=== PATIENT | male | born 1995 | race Caucasian/White ===

== ENCOUNTER 2024-07-27 00:19 | Inpatient (IN) | payer BC, MEDICAID, OTHER ==
[2024-07-27] MEDS: ZIPRASIDONE 20 MG VIAL IM STA ×3 (00:57→21:14)
[2024-07-27] MEDS: MIDAZOLAM 2 MG/2 ML VIAL IM ONE (00:57)
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
[2024-07-27] MEDS: LORazepam 1 MG TAB PO STA (12:44)
[2024-07-27 13:14] LABS: Amphetamine Screen,Urine Not Detected (NotDetected); Barbiturate Screen,Urine Not Detected (NotDetected); Benzodiazepines Screen,Urine Detected (NotDetected); Cocaine Screen,Urine Not Detected (NotDetected); Methadone Screen, Urine Not Detected (NotDetected); Opiate Screen,Urine Not Detected (NotDetected); Oxycodone Screen, Urine Not Detected (NotDetected); Phencyclidine Screen,Urine Not Detected (NotDetected); Tricyclic Antidepressant,Urine Not Detected (NotDetected); Urn Cannabinoid Scrn Not Detected (NotDetected)
[2024-07-28] MEDS: haloperidoL 5 MG TAB PO STA (00:35)
[2024-07-28] MEDS: ZIPRASIDONE 20 MG VIAL IM STA (10:55)
[2024-07-28] MEDS ORDERED: MAGNESIUM HYDROXIDE 2,400 MG/30 ML CUP PO PRN (14:11)
[2024-07-28] MEDS ORDERED: IBUPROFEN 600 MG TAB PO PRN (14:11)
[2024-07-28] MEDS ORDERED: MAG HYDROX/AL HYDROX/SIMETH 355 ML BOTTLE PO PRN (14:11)
[2024-07-28] MEDS ORDERED: ACETAMINOPHEN TAB 325 MG TAB PO PRN (14:11)
[2024-07-28] MEDS ORDERED: QUEtiapine 50 MG TAB PO PRN (14:23)
[2024-07-28] MEDS: HALOPERIDOL LACTATE 5 MG/ML 1 ML VIAL IM PRN (15:01)
[2024-07-28] MEDS: LORazepam 2 MG/ML INJ IM PRN (15:02)
--- NOTE | 2024-07-28 16:12 | P.MDCNMH ---
History of Present Illness H&P Date: 07/28/24 Patient is a 28-year-old male with no known past medical history who presented to the ER on 07/27/2024 he was brought here by police after his girlfriend called and stated that patient was acting paranoid and she felt concern for her safety. Also it was reported patient was making statements not fully making sense, paranoid ideations as he was president. In the ER patient required physical and chemical restraints due to uncooperation and aggressive behavior. His vitals were significant for normal temperature elevated BP 149/83, [id number] room air. Blood work from 07/25 available for review but unremarkable CBC and BMP, negative UA. His UDS from 07/25 was negative, 07/27 positive for benzos. Patient is admitted to mental health unit, sound physicians consulted for medical management On my evaluation, patient was walking in the hallway, he was reportedly trying to leave the unit, he agreed to be evaluated by me, you were accompanied by RN. Patient stated he does not know why he is in the hospital, remember that he was brought by police and mentioned that they are very nice people. He denies any previous medical history, surgical history family history history. Denies any shortness of breath, chest pain, abdominal pain, nausea, vomiting, lower extremity edema. Per RN, patient was agitated upon arrival to the unit, was not living in wheelchair and requested to be taken out by medical staff as well as security, the team was holding the patient and transporting from the wheelchair to the bed as he was not cooperating, and it is considered to be physical restraint, I was asked to complete [id number] evaluation. Pertinent positives and negatives as discussed in HPI, a complete review of systems was performed and all other systems are negative. Patient seen and examined at bedside. Vital signs reviewed General: nontoxic, no distress, appears at stated age Derm: warm, dry Head: atraumatic, normocephalic, symmetric Eyes: EOMI, no lid lag, anicteric sclera, pupils equal round reactive to light ENT: Nose and ears atraumatic Neck: No thyromegaly, supple Mouth: no lip lesion, mucus membranes moist Cardiovascular: S1S2 reg, no murmur, no edema Lungs: clear to auscultation bilateral, no rhonchi, no rales, no wheeze, no accessory muscle use Abdominal: soft, nontender to palpation, no guarding, no appreciable organomegaly Ext: no gross muscle atrophy, muscle strength muscle strength 5 out of 5 in all 4 extremities, no contractures Neuro: CN II-XII grossly intact Psych: Alert, oriented, paranoid Assessment/Plan: Acute psychosis - Management per primary psychiatry team -face to face evaluation completed Past Medical History Past Medical History: No Reported History History of Any Multi-Drug Resistant Organisms: None Reported Past Surgical History: No Surgical Hx Reported Past Psychological History: No Psychological Hx Reported Past Alcohol Use History: None Reported Past Drug Use History: None Reported Medications and Allergies Home Medications Medication Instructions Recorded Confirmed Type No Known Home Medications 12/11/14 07/27/24 History Allergies Allergy/AdvReac Type Severity Reaction Status Date / Time aloe Allergy Unknown Verified 07/27/24 11:32 Physical Exam Vitals: Vital Signs Pulse Resp BP Pulse Ox 07/28/24 07:17 101 H 18 165/86 100 Cranial Nerve Examination - Cranial Nerves Cranial Nerve II- Optic: Intact Cranial Nerve III- Oculomotor: Intact Cranial Nerve IV- Trochlear: Intact Cranial Nerve V- Trigeminal: Intact Cranial Nerve - Abducens: Intact Cranial Nerve VII- Facial: Intact Cranial Nerve VIII- Auditory: Intact Cranial Nerve IX- Glossopharyngeal: Intact Cranial Nerve X- Vagus: Intact Cranial Nerve XI- Accessory: Intact Cranial Nerve XII- Hypoglossal: Intact
--- NOTE | 2024-07-28 16:14 | P.MHFACE ---
Face to Face Restrain/Seclus - Evaluation Patient's Immediate Situation: Endangers self safety, Endangers others' safety Patient's Immediate Situation - Comment: Per RN, patient was cooperative after, however, still tries to leave the Unit, able to be redirected. Patient's Reaction to the Intervention: Appropriate Patient's Medical & Behavioral Condition: Awake, Alert, Follows directions, Paranoid, Manic Need to Continue or Terminate Restraint or Seclusion: Terminate
[2024-07-29] MEDS: LORazepam 1 MG TAB PO PRN (00:39)
[2024-07-29 08:32] LABS: Basophils # (A) 0.05 10*3/uL (0.00-0.10); Basophils % (A) 0.7 %; Eosinophils # (A) 0.02 10*3/uL (0.04-0.35); Eosinophils % (A) 0.3 %; HCT 47.9 % (39.6-50.0); HGB 16.3 g/dL (13.0-17.0); Lymphocytes # (A) 1.67 10*3/uL (0.90-5.00); Lymphocytes % (A) 24.6 %; MCH 30.5 pg (27.0-32.0); MCV 89.5 fL (80.0-97.0); Mean Platelet Volume 11.8 fL (9.5-12.2); Monocytes # (A) 0.53 10*3/uL (0.20-1.00); Monocytes % (A) 7.8 %; Neutrophils # (A) 4.52 10*3/uL (1.80-7.70); Neutrophils % (A) 66.5 %; Platelet Count 243 10*3/uL (140-440); RBC 5.35 10*6/uL (4.40-5.60)
[2024-07-29 08:55] LABS: ALT 30 U/L (4-49); AST 35 U/L (17-59); African American GFR (CKD) >90 (>60 ml/min/1.73 sqM); Albumin 4.7 g/dL (3.5-5.0); Alkaline Phosphatase 50 U/L (38-126); Anion Gap 10 mmol/L; Blood Urea Nitrogen 11 mg/dL (9-20); Calcium 10.1 mg/dL (8.4-10.2); Carbon Dioxide 26 mmol/L (22-30); Chloride 103 mmol/L (98-107); Glucose 90 mg/dL (74-99); Non-African American GFR(CKD) >90 (>60 ml/min/1.73 sqM); Potassium 4.5 mmol/L (3.5-5.1); Sodium 139 mmol/L (137-145); Total Bilirubin 0.9 mg/dL (0.2-1.3); Total Protein 7.3 g/dL (6.3-8.2)
[2024-07-29] MEDS: ARIPiprazole 10 MG TAB PO SCH (11:45)
[2024-07-29] MEDS: NICOTINE 14MG/24HR PATCH TRANSDERM SCH (11:48)
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
[2024-07-29] MEDS: haloperidoL 5 MG TAB PO PRN (12:13)
[2024-07-29 13:53] LABS: Appearance,Urine Clear (Clear); Bilirubin,Urine Negative (Negative); Blood,Urine Negative (Negative); Color,Urine Yellow; Glucose,Urine (UA) Negative (Negative); Ketones,Urine Negative (Negative); Leukocyte Esterase,Urine Negative (Negative); Nitrite,Urine Negative (Negative); PH, Urine 5.5 (5.0-8.0); Protein,Urine Negative (Negative); Specific Gravity,Urine 1.025 (1.001-1.035); Urobilinogen,Urine <2.0 mg/dL (<2.0)
[2024-07-29 16:14] LABS: Chol/HDL Ratio 2.25 Ratio; LDL Cholesterol,Calculated 60.7 mg/dL (0.0-131.0)
--- NOTE | 2024-07-30 13:46 | P.PN ---
Progress Note - Text Progress Note Date: 07/30/24 Interval History: Patient was seen wandering the hallways and was directable and agreeable to sp gina with sba underwriter in the [place] privately. He has been adherent with his Abilify, denying any adverse effects and feeling like the medication is working well thus far. He states he has been speaking to his girlfriend and that he can return home with her upon discharge. Patient continues to display disorganization in thoughts, randomly blurting out January 23 when discussing the legal process with the patient. The involuntary process was discussed thoroughly to the patient to which she initially states he plans on signing the deferral however then later said that he will go to court and then later on patient asked about being discharged today despite the lengthy discussion held earlier regarding the involuntary process. At this time patient denies any suicidal or homicidal ideations, intent or plan. Patient denies any auditory, visual hallucinations and denies any paranoia or delusions. Patient denies any side effects from the medications and has been compliant with meds. Mental Status Exam: General Appearance: Patient appears to be stated age is alert, directable, and cooperative. He is wearing a hospital gown Behavior: Patient is calmly standing without any agitated behavior. He is intermittently confused Speech: Patient's speech is fluent and nonpressured. Mood/Affect: Mood is improving mildly, affect is congruent and constricted. Suicidality/Homicidality: Patient denies having any suicidal or homicidal ideation intent or plan. Perceptions: Patient denies any visual hallucinations and denies any auditory hallucinations Though content/process: There is evidence of disorganization in thoughts, bizarre behaviors, paranoia lessening Memory and concentration: AOX3, grossly intact for the purposes of this session Judgment and insight: Improving mildly Assessment Psychosis, unspecified Rule out bipolar 1 disorder versus schizoaffective disorder bipolar type Plan: -Patient continues to meet criteria for inpatient psychiatric admission for symptom stabilization and safety. Patient has not signed adult voluntary form and medication consent and was placed in patient's chart. -Medications: Continue Abilify 10 mg daily for psychosis -When necessary Ativan and Haldol for agitation/aggression. -Labs: Reviewed, TSH/A1c/lipid panel all WNL -SW on board for discharge planning. Encouraged the patient to participate in milieu. Currently awaiting deferral with health care attorney and court date.
[2024-07-31] MEDS: ARIPiprazole 5 MG TAB PO SCH (09:08)
--- NOTE | 2024-07-31 10:52 | P.PN ---
Progress Note - Text Progress Note Date: 07/31/24 Interval History: Patient was seen wandering the hallways and was directable and agreeable to sp gina with property underwriter in the office. Patient is pleasantly psychotic, still exhibiting disorganization in thoughts, asked if he is able to have his wedding ceremony here in the hospital. 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 He likes having the Abilify, reporting no adverse effects. He continues to emphasize how he does not use any substances including alcohol. He reports sleeping okay. At this time patient denies any suicidal or homicidal ideations, intent or plan. Patient denies any auditory, visual hallucinations. Patient denies any side effects from the medications and has been compliant with meds. Mental Status Exam: General Appearance: Patient appears to be stated age is alert, pleasant, directable, and cooperative. Behavior: Patient is calmly seated without any agitated behavior. Speech: Patient's speech is fluent and nonpressured. Mood/Affect: Mood is improving mildly, affect is congruent and constricted. Suicidality/Homicidality: Patient denies having any suicidal or homicidal ideation intent or plan. Perceptions: Patient denies any visual hallucinations and denies any auditory hallucinations Though content/process: There is evidence of disorganization in thoughts, delusional thoughts exhibited Memory and concentration: AOX3, grossly intact for the purposes of this session Judgment and insight: Improving mildly Assessment Psychosis, unspecified Rule out bipolar 1 disorder versus schizoaffective disorder bipolar type Plan: -Patient continues to meet criteria for inpatient psychiatric admission for symptom stabilization and safety. Patient has not signed adult voluntary form and medication consent and was placed in patient's chart. -Medications: Increase Abilify to 15 mg daily for psychosis -When necessary Ativan and Haldol for agitation/aggression. -Labs: Reviewed, TSH/A1c/lipid panel all WNL -SW on board for discharge planning. Encouraged the patient to participate in milieu. Currently awaiting deferral with commercial real estate attorney and court date.
--- NOTE | 2024-08-01 12:52 | P.PN ---
Progress Note - Text Progress Note Date: 08/01/24 Interval History: Patient was seen wandering the hallways and was directable and agreeable to sp gina with senior writer in the office. Patient continues to be disorganized in his thoughts with bizarre behaviors. He expressed delusional thoughts about being tomorrow and his desire to speak to his girlfriend's father before the wedding ceremony. Patient continues to be intrusive at times however is redirectable. He was informed that the deicer finisher will be by later today so that he can sign the deferral. 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 He denied any euphoria, elevated mood. At this time patient denies any suicidal or homicidal ideations, intent or plan. Patient denies any auditory, visual hallucinations and denies any paranoia. Patient denies any side effects from the medications and has been compliant with meds. Mental Status Exam: General Appearance: Patient appears to be stated age is alert, directable, and cooperative. He has fair grooming and hygiene Behavior: Patient is calmly seated without any agitated behavior. Speech: Patient's speech is fluent and nonpressured. Mood/Affect: Mood is improving mildly, affect is congruent and constricted. Suicidality/Homicidality: Patient denies having any suicidal or homicidal ideation intent or plan. Perceptions: Patient denies any visual hallucinations and denies any auditory hallucinations Though content/process: There is evidence of disorganization, delusional thoughts expressed Memory and concentration: AOX3, grossly intact for the purposes of this session Judgment and insight: Improving mildly Assessment Psychosis, unspecified Rule out bipolar 1 disorder versus schizoaffective disorder bipolar type Plan: -Patient continues to meet criteria for inpatient psychiatric admission for symptom stabilization and safety. Patient has not signed adult voluntary form and medication consent and was placed in patient's chart. -Medications: Increase Abilify to 20 mg daily for psychosis -When necessary Ativan and Haldol for agitation/aggression. -Labs: Reviewed and everything has been negative thus far including UA and CT head, further lab workup ordered including ZACHARY, syphilis and B12 -SW on board for discharge planning. Encouraged the patient to participate in milieu. Currently awaiting deferral with deicer finisher and court date. Batch Mixer to come later today for patient to sign deferral
[2024-08-02] MEDS: ARIPiprazole 10 MG TAB PO SCH (08:22)
--- NOTE | 2024-08-02 15:55 | P.PN ---
Subjective Progress Note Date: 08/02/24 Principal diagnosis: Psychosis NOS Patient was seen wandering the hallways and was directable and agreeable to speak with securities underwriter in the office. He was very positive and bubbly came up when you know if I want to see him now. Big smile on his face. He seems to have no recollection of what he was saying and doing as recently as yesterday that other people would see is unusual. He said that he and his girlfriend had gone to visit his folks who do not like her but liked some of his former girlfriend's. So they put boxes in their room with paraphernalia left over from the use of the relationship. This is bothersome to him so he objected and they got into a disagreement and he wound up here.. Patient continues to be intrusive at times however is redirectable. He denied any euphoria, elevated mood. However he had a big smile Talking about problem. At this time patient denies any suicidal or homicidal ideations, intent or plan. Patient denies any auditory, visual hallucinations and denies any paranoia. Patient denies any side effects from the medications and has been compliant with meds. Mental Status Exam: General Appearance: Patient appears to be stated age is alert, directable, and cooperative. He has fair grooming and hygiene Behavior: Patient is calmly seated without any agitated behavior. Speech: Patient's speech is fluent and nonpressured. Mood/Affect: Mood is improving mildly, affect is congruent and constricted. Suicidality/Homicidality: Patient denies having any suicidal or homicidal ideation intent or plan. Perceptions: Patient denies any visual hallucinations and denies any auditory hallucinations Though content/process: There is evidence of disorganization, delusional thoughts expressed Memory and concentration: AOX3, grossly intact for the purposes of this session Judgment and insight: Improving mildly Assessment it appears that the psychosis is beginning to clear he does not seem to have any objection to taking the Abilify. Psychosis, unspecified Rule out bipolar 1 disorder versus schizoaffective disorder bipolar type he certainly has enormous energy of a person with bipolar Plan: -Patient continues to meet criteria for inpatient psychiatric admission for symptom stabilization and safety. Patient has not signed adult voluntary form and medication consent and was placed in patient's chart. -Medications: Increase Abilify to 25 mg daily for psychosis -When necessary Ativan and Haldol for agitation/aggression. -Labs: Reviewed and everything has been negative thus far including UA and CT head, further lab workup ordered including ZACHARY, syphilis and B12 -SW on board for discharge planning. Encouraged the patient to participate in milieu. Currently awaiting deferral with entry level project coordinator and court date. Western Philosophy Professor to come later today for patient to sign deferral Objective - Vital Signs Vital signs: Vital Signs Temp 98.6 F 08/02/24 08:20 Pulse 88 08/02/24 08:20 Resp 20 08/02/24 08:20 BP 113/61 08/02/24 08:20 Pulse Ox 97 08/02/24 08:20 FiO2 - Labs CBC & Chem 7: 07/29/24 07:58 07/29/24 07:58
--- NOTE | 2024-08-03 06:47 | P.PN ---
Subjective Progress Note Date: 08/03/24 Principal diagnosis: Psychosis NOS Appears to have Bipolar I shaye Patient was seen wandering the hallways and was directable and asked to speak with short story writer in the office, "I want to be the first 1 on your list today".. He continues very overly positive and bubbly. Big smile on his face. At this time patient denies any suicidal or homicidal ideations, intent or plan. Patient denies any auditory, visual hallucinations and denies any paranoia. Patient denies any side effects from the medications and has been compliant with meds. 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 He made a comment about how he would be 6 months before he could get to the boat so I asked him why and he said, "well I am going to be in here that long." Mental Status Exam: No aggression not even invadingexcept every time I walk out the door he says, "radha Vanessa I would like you" General Appearance: Patient appears to be stated age is alert, directable, and cooperative. He has fair grooming and hygiene Behavior: Patient is calmly seated without any agitated behavior. Speech: Patient's speech is fluent and nonpressured. Mood/Affect: Mood is improving mildly, affect is congruent and constricted. Suicidality/Homicidality: Patient denies having any suicidal or homicidal ideation intent or plan. Perceptions: Patient denies any visual hallucinations and denies any auditory hallucinations Though content/process: There is evidence of disorganization, delusional thoughts expressed Memory and concentration: AOX3, grossly intact for the purposes of this session he does give a lot of excess irrelevant information having difficulty deciding what information is relevant to the person and place and situation Judgment and insight: Improving mildly Assessment it appears that the psychosis is beginning to clear he does not seem to have any objection to taking the Abilify. Psychosis, unspecified Rule out bipolar 1 disorder versus schizoaffective disorder bipolar type he certainly has enormous energy some flight of ideas and a little bit of pressure of a person with bipolar Plan: -Patient continues to meet criteria for inpatient psychiatric admission for symptom stabilization and safety. Patient has not signed adult voluntary form and medication consent and was placed in patient's chart. -Medications: Increase Abilify to 25 mg daily for psychosis -When necessary Ativan and Haldol for agitation/aggression. -Labs: Reviewed and everything has been negative thus far including UA and CT head, further lab workup ordered including ZACHARY, syphilis and B12 -SW on board for discharge planning. Encouraged the patient to participate in milieu. Currently awaiting deferral with employee benefits attorney and court date. Province Archivist to come later today for patient to sign deferral Objective - Vital Signs Vital signs: Vital Signs Temp 98.6 F 08/02/24 08:20 Pulse 88 08/02/24 08:20 Resp 20 08/02/24 08:20 BP 113/61 08/02/24 08:20 Pulse Ox 97 08/02/24 08:20 FiO2 - Labs CBC & Chem 7: 07/29/24 07:58 07/29/24 07:58
--- NOTE | 2024-08-04 12:10 | P.PN ---
Progress Note - Text Progress Note Date: 08/04/24 Interval History: Patient was seen wandering the hallways and was directable and agreeable to sp eak with writer technical publications in the office. Patient continues to exhibit disorganization in his thoughts and behaviors, confusion as evidenced by him repeatedly asking to speak to writer technical publications despite speaking to writer technical publications several times with no clear reasoning behind this. He displays delusional thoughts, stating that he is the president of the hospital and that writer technical publications does not believe him. He no longer feels as tho ugh he is getting soon. When asked about paranoia, patient chuckles and questions if others are after him sexually, stating that he circled this on his goalsetting sheet today. At this time patient denies any suicidal or homicidal ideations, intent or plan. Patient denies any auditory, visual hallucinations. Patient denies any side effects from the medications and has been compliant with meds. 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 She feels as though patient's parents did not have his best interest as his sister is currently suffering from bipolar disorder however they prefer a more holistic approach. She states patient today contacted her regarding having her father text him, making odd statements such as having wanted to tell him that he has to have a bowel movement. She is hopeful that patient can return home with her once stable. Mental Status Exam: General Appearance: Patient appears to be stated age is alert, directable, and cooperative. Behavior: Patient is calmly seated without any agitated behavior. Requires frequent redirection Speech: Patient's speech is fluent and nonpressured. Mood/Affect: Mood is improving mildly, affect is congruent and expansive. Suicidality/Homicidality: Patient denies having any suicidal or homicidal ideation intent or plan. Perceptions: Patient denies any visual hallucinations and denies any auditory hallucinations Though content/process: There is evidence of disorganization, bizarre behaviors, delusions of being the vice president of manufacturing Memory and concentration: AOX3, grossly intact for the purposes of this session Judgment and insight: Improving mildly Assessment Psychosis, unspecified Rule out bipolar 1 disorder versus schizoaffective disorder, bipolar type Plan: -Patient continues to meet criteria for inpatient psychiatric admission for symptom stabilization and safety. Patient has not signed adult voluntary form and medication consent and was placed in patient's chart. -Medications: Discontinue Abilify and start Invega 6 mg at bedtime for psychosis -When necessary Ativan and Haldol for agitation/aggression. -Labs: ZACHARY, syphilis and vitamin B12 all WNL -SW on board for discharge planning. Encouraged the patient to participate in milieu. Patient deferred on Sunday.
[2024-08-04] MEDS: PALIPERIDONE 6 MG TAB.ER.24 PO SCH (20:40)
--- NOTE | 2024-08-05 12:11 | P.PN ---
Progress Note - Text Progress Note Date: 08/05/24 Interval History: Patient was seen wandering the hallways and was directable and agreeable to sp faheemk with headline writer in the office. Patient was intrusive, requiring frequent redirection however did appear more calm than yesterday after receiving as needed medications. He was apologetic for his behaviors yesterday, still exhibiting flight of ideas with delusional thoughts, inquiring if headline writer can officiate his wedding and then later asking headline writer how the new medication is working despite patient himself taking the medication. 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 He reports sleeping and eating well. He inquires about discharge stating that he has to watch his girlfriends daughter over the weekend. At this time patient denies any suicidal or homicidal ideations, intent or plan. Patient denies any auditory, visual hallucinations and denies any paranoia. Patient denies any side effects from the medications and has been compliant with meds. Mental Status Exam: General Appearance: Patient appears to be stated age is alert, directable, and cooperative. He has fair grooming and hygiene Behavior: Patient is calmly seated without any agitated behavior. Requires frequent redirection Speech: Patient's speech is fluent and talkative Mood/Affect: Mood is improving mildly, affect is congruent and expansive. Suicidality/Homicidality: Patient denies having any suicidal or homicidal ideation intent or plan. Perceptions: Patient denies any visual hallucinations and denies any auditory hallucinations Though content/process: There is evidence of delusional thoughts, flight of ideas Memory and concentration: AOX3, grossly intact for the purposes of this session Judgment and insight: Improving mildly Assessment Psychosis, unspecified Rule out bipolar 1 disorder versus schizoaffective disorder, bipolar type Plan: -Patient continues to meet criteria for inpatient psychiatric admission for symptom stabilization and safety. Patient has not signed adult voluntary form and medication consent and was placed in patient's chart. -Medications: Increase Invega to 9 mg at bedtime for psychosis -When necessary Ativan and Haldol for agitation/aggression. -Labs: Reviewed, all WNL -SW on board for discharge planning. Encouraged the patient to participate in milieu. Patient deferred this past Sunday.
[2024-08-05] MEDS: PALIPERIDONE 3 MG TAB.ER.24 PO SCH (20:25)
[2024-08-05] MEDS: DIVALPROEX ER 250 MG TAB.ER.24H PO SCH (20:25)
--- NOTE | 2024-08-06 12:17 | P.PN ---
Progress Note - Text Progress Note Date: 08/06/24 Interval History: Patient was seen wandering the hallways and was directable and agreeable to sp gina with financial writer in the office. Patient did require as needed medications however this was due to and intrusive peer going into his room and putting on his belongings. Patient was able to control himself, handling the situation well. Patient did admit that he wanted to hurt this. However he was able to refrain from this. Patient still exhibits disorganization in thoughts however they are improving and that he initially spoke of his girlfriend as his fiance however later on he did refer to her as his girlfriend, stating that he has not yet proposed to her even though he wants to do this. Patient states wanting to speak to his girlfriend's father to apologize for not bringing him a beer. He inquires about discharge, states he will take his medications and is interested in pursuing therapy upon discharge. At this time patient denies any suicidal or homicidal ideations, intent or plan. Patient denies any auditory, visual hallucinations and denies any paranoia. Patient denies any side effects from the medications and has been compliant with meds. Mental Status Exam: General Appearance: Patient appears to be stated age is alert, directable, and cooperative. Behavior: Patient is calmly seated without any agitated behavior. He is pleasant, polite Speech: Patient's speech is fluent and nonpressured. Mood/Affect: Mood is improving mildly, affect is congruent and bright. Suicidality/Homicidality: Patient denies having any suicidal or homicidal ideation intent or plan. Perceptions: Patient denies any visual hallucinations and denies any auditory hallucinations Though content/process: There is evidence of delusions however lessening, some disorganized thoughts Memory and concentration: AOX3, grossly intact for the purposes of this session Judgment and insight: Improving mildly Assessment Psychosis, unspecified Rule out bipolar 1 disorder versus schizoaffective disorder, bipolar type Plan: -Patient continues to meet criteria for inpatient psychiatric admission for symptom stabilization and safety. Patient has not signed adult voluntary form and medication consent and was placed in patient's chart. -Medications: Increase Invega to 12 mg at bedtime for psychosis, continue Depakote ER 750 mg at bedtime for mood stabilization -When necessary Ativan and Haldol for agitation/aggression. -Labs: Reviewed all WNL, will order a Depakote level in the upcoming days -SW on board for discharge planning. Encouraged the patient to participate in milieu. Patient is currently on a deferral status. Anticipate discharge in the upcoming days pending stabilization in psychosis
[2024-08-06] MEDS: PALIPERIDONE 3 MG TAB.ER.24 PO SCH (20:02)
--- NOTE | 2024-08-07 10:40 | P.PN ---
Progress Note - Text Progress Note Date: 08/07/24 Interval History: Patient was seen wandering the hallways and was directable and agreeable to sp eak with medical writer in the office. Patient notably is less disorganized, less bizarre behaviors such as knocking on medical writer's door constantly throughout the day. He has been adherent with the psychotropic medications, stating that he likes the current cocktail of medications. He is sleeping well. He saw his girlfriend during visitations yesterday which she said was nice for him. He no longer feels as though they are getting soon however he did display some disorganized thoughts stating that he saw the date January 21 and that triggered him to think that they might get on that day. He was goal oriented, talked about his desire to spend father stay with his father fishing. At this time patient denies any suicidal or homicidal ideations, intent or plan. Patient denies any auditory, visual hallucinations and denies any paranoia. Patient denies any side effects from the medications and has been compliant with meds. Mental Status Exam: General Appearance: Patient appears to be stated age is alert, directable, and cooperative. He is polite Behavior: Patient is calmly seated without any agitated behavior. Some restlessness noted Speech: Patient's speech is fluent and nonpressured. Mood/Affect: Mood is improving mildly, affect is congruent and bright. Suicidality/Homicidality: Patient denies having any suicidal or homicidal ideation intent or plan. Perceptions: Patient denies any visual hallucinations and denies any auditory hallucinations Though content/process: There is evidence of disorganization however lessening, delusional thoughts are also lessening Memory and concentration: AOX3, grossly intact for the purposes of this session Judgment and insight: Improving mildly Assessment Psychosis, unspecified Rule out bipolar 1 disorder versus schizoaffective disorder bipolar type Plan: -Patient continues to meet criteria for inpatient psychiatric admission for symptom stabilization and safety. Patient has not signed adult voluntary form and medication consent and was placed in patient's chart. -Medications: Continue Invega 12 mg at bedtime for psychosis, Depakote ER 750 mg at bedtime for mood stabilization -When necessary Ativan and Haldol for agitation/aggression. -Labs: Reviewed, Depakote level ordered tomorrow -SW on board for discharge planning. Encouraged the patient to participate in milieu. Patient is currently on a deferral status. Anticipate discharge home with girlfriend tomorrow
[2024-08-07 11:40] VITALS: BMI 34.1
[2024-08-07 22:53] VITALS: BP 131/82; PULSE 122; RESP 18; TEMP 98
--- NOTE | 2024-08-08 10:48 | P.DS ---
Providers Date of admission: 07/28/24 13:58 Expected date of discharge: 08/08/24 Attending physician: Samantha Bentley MD Consults: 07/28/24 14:11 Consult Physician Routine Consulting Provider: Dennys Matthews Consult Reason/Comments: H&P and medical Do you want consulting provider notified?: Yes Primary care physician: Stated None - Discharge Diagnosis(es) (1) Acute psychosis Current Visit: Yes Status: Acute Priority: High Hospital Course: Admission HPI: Admission note was completed by residential mortgage underwriter "Patient presented to the hospital with psychosis. Patient's mother filled out the petition which states, "hyperfocus on things that do not fully make sense. Similar to relevance, but not actually happening, i.e. going to purchase a business, going to get to his girlfriend. He has stated a couple of times he thinks he is the president." EPS notes states, "Patient presented to ER with PD related to increased aggression and delusional thoughts. Patient assessed in ER13 with his girlfriend (Josefa) and mother (Laurel) at bedside. Patient was petitioned by Laurel related to increased paranoia and delusional thoughts, and clinical certificate already complete by Dr. Bey related to acute psychosis including paranoia and grandiosity. Patient stated presenting problem "I've walked around this hospital, I've seen what I needed to see and talked to who I need to talk to and I am ready to go home". Patient redirectable throughout interview but required frequent redirection. Patient presents with tangential speech, loud tone of voice, intense stare, and flight of ideas. Patient denies suicidal and homicidal ideations. Patient denies hallucinations and paranoia. Patient appears to make delusional statements "I am the CARE PROFESSIONAL [employer] so you can't tell me anything". Patient did not demonstrate any aggression during assessment. Patient was easily redirectable. Patient denies alcohol or drug use. Leadership Program Internship assessed patient on Sunday evening 07/24/2024 related to being at a wedding shirtless. At time of interview, patient had returned to baseline per mother. Patient at that time was calm and cooperative. It was thought to be chemicals in his car that caused previous episode. Josefa reported that patient over the last day has been up and down in moods, increased paranoia, and making delusional statements. Patient at this time is observed to be much different to residential mortgage underwriter than presentation on Sunday. Patient has poor insight into condition, poor recollection of events, and does not understand why he is in ER. Patient educated multiple times but requires frequent reminders. Patient and family educated on transfer r/t no bed availability at this time. Verbalizes understanding." Patient seen and evaluated on the unit and was agreeable with speaking to residential mortgage underwriter in room. He displays disorganization in his thoughts, poor insight. 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 He denied any past psychiatric history. He displayed paranoia and admitted to having paranoia previously however did admit to trusting residential mortgage underwriter. Patient displayed mood lability, as evidenced by him going from laughing hysterically to becoming tearful. 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 He states recently killing a mouse at his home with a piece of wood when asked about homicidal ideations. Patient denies any suicidal or homicidal ideations intent or plan. At this time patient denies any auditory or visual hallucinations. Patient denies any flight of ideas racing thoughts and increased in goal directed behavior. Patient admits to using no substances. Patient states he does not want to take medications, requesting to see a brain surgeon instead." Hospital course: Upon admission to the unit patient was admitted involuntarily on a petition and certificate and a second certificate was completed and faxed to the courts. Patient ended up signing a deferral with the ip attorney and agreeing to treatment.. Patient got along well with other patients on the unit and followed unit protocol. Patient was compliant with the medications and denied any side effects throughout hospital course. Patient was started on Abilify and this was increased to 25 mg however patient continued to exhibit psychosis and this was discontinued and he was started instead on Invega and this was increased to 12 mg at bedtime for psychosis with better effects. For mood stabilization, patient was started on Depakote ER 750 mg at bedtime, Depakote level returned at 41.9. Patient spoke of his stressors and engaged in therapy both group and individual. Patient was also seen by medical team for history and physical exam. Throughout the course of the hospitalization patient gradually improved with regards to mood, anxiety, sleep and returned back to their baseline level of functioning. On the day of discharge patient denied any suicidal or homicidal ideations intent or plan denied any auditory or visual hallucinations. The patient denied any access to guns or weapons. Patient denied any paranoia however did exhibit some delusional thoughts however less in severity than previous encounters. Patient does not have a significant history of substance abuse and was counseled on abstaining from all substances including alcohol and marijuana. Patient was also counseled on the medications and need for regular compliance and was encouraged to follow-up with their outpatient appointment for mental health and also for primary care. Prior to discharge a family meeting will be arranged by social contact worker to answer any questions and ensure safety upon discharge including making sure that guns/weapons are either removed from the home or locked away. Patient to be discharged home with girlfriend and will follow-up with [facility]. Mental status exam: General Appearance: Patient appears to be stated age is alert, pleasant, polite and cooperative. Patient is in no acute distress and has fair hygiene and grooming Behavior: Patient is calmly seated without any agitated behavior. Speech: Patient's speech is fluent and nonpressured. Mood/Affect: Patient reports their mood is "good", affect is congruent and euthymic. Suicidality/Homicidality: Patient denies having any suicidal or homicidal ideation intent or plan. Perceptions: Patient denies any auditory or visual hallucinations. Though content/process: There is evidence of mild delusional thought content and thought process is linear and goal-directed. More future oriented Memory and concentration: AOX3, grossly intact for the purposes of this session. Can spell "WORLD" backwards correctly. Judgment and insight: Fair Impression: Unspecified psychosis Rule out bipolar 1 disorder versus schizoaffective disorder bipolar type Plan: -Continue with discharge today as patient has improved and stabilized psychiatrically and is not currently an imminent threat to themself and/or others. -Continue medications: Invega 12 mg at bedtime, Depakote ER 750 mg at bedtime -Patient was counseled on the need for medication compliance and appropriate follow-up at mental health and also primary care for medical issues. Patient verbalized understanding and agreed. -Social work to help coordinate patients discharge today arrange for and conduct family meeting to ensure safety upon discharge and answer any questions/concerns. also to ensure safe home environment that guns/weapons are either removed from the home or locked away. Social work also to arrange for patients follow up appointments with [facility] for psychiatric care along with follow up with primary care provider. -Patient counseled on abstaining from recreational drugs and marijuana and alcohol. Was informed/educated on the adverse effects on their physical and mental health. Patient verbally agreed and understood. -Patient was instructed to return to the hospital or seek immediate medical care if their psychiatric or medical symptoms do worsen or reoccur. Abnormal Labs 07/27/24 07/29/24 12:36 07:58 Eosinophils # 0.02 L U Benzodiazepines Scrn Detected H Allergies Allergy/AdvReac Type Severity Reaction Status Date / Time aloe Allergy Unknown Verified 07/27/24 11:32 Vital Signs Temp 98.0 F 08/07/24 21:00 Pulse 122 H 08/07/24 21:00 Resp 18 08/07/24 21:00 BP 131/82 08/07/24 21:00 Pulse Ox 97 08/07/24 21:00 FiO2 Intake & Output 08/07/24 08/08/24 08/08/24 18:59 06:59 18:59 Weight 111.1 kg Patient Condition at Discharge: Stable Plan - Discharge Summary Discharge Rx Participant: No New Discharge Prescriptions: New Paliperidone [Invega] 12 mg PO HS 30 Days #120 tab Divalproex ER [Depakote ER] 750 mg PO HS 30 Days #90 tab Discharge Medication List Divalproex ER [Depakote ER] 750 mg PO HS 30 Days #90 tab 08/08/24 [Rx] Paliperidone [Invega] 12 mg PO HS 30 Days #120 tab 08/08/24 [Rx] Follow up Appointment(s)/[facility]erral(s): [facility]Other[facility] - [address] [facility] [NON-STAFF] - 08/12/24 9:00 am (Intake appointment with [facility]. ) Patient Instructions/Handouts: Psychotic Disorder (DC) Activity/Diet/Wound Care/Special Instructions: Avoid the use of street drugs and alcohol. Take all medications as prescribed. When you are in need of refills on your medications, please contact your medical provider and/or outpatient psychiatrist/provider to have this done. Please go to your scheduled outpatient appointment for aftercare treatment. If symptoms return or become worse, call the crisis line at and/or go to the nearest emergency room for evaluation. National Suicide Hotline [facility] [facility] confidentiality statement: "The information contained in this communication, including attachments, is confidential, may be privileged, and is intended only for the use of the named recipient(s). Unauthorized use, disclosure, forwarding or copying is strictly prohibited and may be unlawful. If you have received this communication in error, please notify me IMMEDIATELY at the phone number or pager listed above. Discharge/Stand Alone Forms: Area PCPs Discharge Disposition: HOME SELF-CARE
== END 2024-08-08 07:00 | disposition home or self-care (01) | DRG 750 ==
LOC: EC 00:19 → 3MHU 07-28 13:58
PROVIDERS: ADMIT Psychiatry & Neurology Psychiatry; ATTEND Psychiatry & Neurology Psychiatry
DX: F23 Brief psychotic disorder (principal); R45.86 Emotional lability; F41.9 Anxiety disorder, unspecified; R03.0 Elevated blood-pressure reading, without diagnosis of hypertension; Z78.1 Physical restraint status; Z79.899 Other long term (current) drug therapy; Z28.21 Immunization not carried out because of patient refusal; Z71.89 Other specified counseling
CPT/HCPCS: 80053; 80061; 80164; 80306; 81003; 82075; 82607; 83036; 84443; 85025; 86038; 86780; 87635; 96372; 99285

== ENCOUNTER 2024-08-12 11:20 | Emergency (ER) | payer BC, OTHER ==
--- NOTE | 2024-08-12 11:50 | ED ---
General Adult HPI - General Chief complaint: Recheck/Abnormal Lab/Rx Stated complaint: Mental health eval Time Seen by Provider: 08/12/24 11:50 Source: patient, family (girlfriend), RN notes reviewed, old records reviewed (Discharge summary reviewed from 08/08/24) Mode of arrival: ambulatory Limitations: no limitations - History of Present Illness Initial comments: 28-year-old male presented to ER for evaluation of dysphagia. Girlfriend prov iding majority of HPI. She states patient was discharged from [facility]. on 08-08-2024. Patient was discharged on Invega 12 mg at bedtime and Depakote 750 mg at bedtime. Girlfriend reports over the weekend patient has had severe drooling and appears "out of it". She also reports patient is having difficulty with eating. She states he takes a minute to "think" about swallowing. Patient is tolerating liquids and applesauce without difficulty. She is concerned Invega dose may be too high. Patient was seen by [facility] today and instructed come to the emergency department for further evaluation of dysphagia and drooling. Patient is scheduled to follow-up with prescriber tomorrow. Girlfriend denies any slurred speech, facial droop, unilateral weakness. Patient denies any headache, cough, congestion, chest pain, difficulty breathing, dizziness or lightheadedness. No other complaints Patient denies SI or HI. Patient denies any drug or alcohol use including marijuana. - Related Data Previous Rx's Medication Instructions Recorded Divalproex ER [Depakote ER] 750 mg PO HS 30 Days #90 tab 08/08/24 Paliperidone [Invega] 12 mg PO HS 30 Days #120 tab 08/08/24 Allergies Allergy/AdvReac Type Severity Reaction Status Date / Time aloe Allergy Unknown Verified 08/12/24 12:54 Review of Systems ROS Statement: Those systems with pertinent positive or pertinent negative responses have been documented in the HPI. ROS Other: All systems not noted in ROS Statement are negative. Past Medical History Past Medical History: No Reported History History of Any Multi-Drug Resistant Organisms: None Reported Past Surgical History: No Surgical Hx Reported Past Psychological History: No Psychological Hx Reported Smoking Status: Never smoker Past Alcohol Use History: None Reported Past Drug Use History: None Reported General Exam Limitations: no limitations General appearance: alert, in no apparent distress, other (Slow responding to commands and questions) Eye exam: Present: normal appearance, PERRL, EOMI. Absent: scleral icterus, conjunctival injection, periorbital swelling Pupils: Present: normal accommodation ENT exam: Present: normal exam, normal oropharynx, mucous membranes moist, TM's normal bilaterally Neck exam: Present: normal inspection. Absent: tenderness, meningismus, lymphadenopathy Respiratory exam: Present: normal lung sounds bilaterally. Absent: respiratory distress, wheezes, rales, rhonchi, stridor Cardiovascular Exam: Present: normal rhythm, tachycardia, normal heart sounds Extremities exam: Present: normal inspection, full ROM, normal capillary refill. Absent: tenderness, pedal edema, joint swelling, calf tenderness Neurological exam: Present: alert, oriented X3, CN II-XII intact Skin exam: Present: warm, dry, intact, normal color. Absent: rash Course Vital Signs 08/12/24 08/12/24 11:23 13:25 Temperature 97.6 F 97.8 F Pulse Rate 122 H 105 H Respiratory 24 20 Rate Blood Pressure 124/87 120/89 O2 Sat by Pulse 97 98 Oximetry - Reevaluation(s) Reevaluation #1: 08/12/24 12:10 Case discussed with psychiatrist, Dr. Bentley. She advised on IM Cogentin for symptom control. She states patient has close outpatient follow-up with prescriber tomorrow to further evaluate Invega dosing. EKG Findings - EKG Comments: EKG Findings:: EKG taken at 11: 56 showing a sinus rhythm. No ST segment elevations or depressions. No T wave inversions. Ventricular rate 96, parable 108, QRS duration 90, QT/QTc 325/378. Medical Decision Making - Medical Decision Making Was pt. sent in by a medical professional or institution (, PA, STORAGE SOLUTIONS ARCHITECT, urgent care, hospital, or usp...) When possible be specific @ -No Did you speak to anyone other than the patient for history (EMS, parent, family, police, friend...)? What history was obtained from this source @ -Patient's girlfriend, bedside, aiding in HPI and past medical history. Did you review nursing and triage notes (agree or disagree)? Why? @ -I reviewed and agree with nursing and triage notes Were old charts reviewed (outside hosp., previous admission, EMS record, old EKG, old radiological studies, urgent care reports/EKG's, usp records)? Report findings @ -Yes, I reviewed discharge summary from 08-08-2024. Patient discharged from [facility] after mental health evaluation. Patient discharged on 12 mg of Invega and 750 mg Depakote. Differential Diagnosis (chest pain, altered mental status, abdominal pain women, abdominal pain men, vaginal bleeding, weakness, fever, dyspnea, syncope, headache, dizziness, GI bleed, back pain, seizure, CVA, palpatations, mental health, musculoskeletal)? @ -Medication reaction, tardive dyskinesia, anaphylaxis,... This is not to be all-inclusive EKG interpreted by me (3pts min.). @ -As above X-rays interpreted by me (1pt min.). @ -None done CT interpreted by me (1pt min.). @ -None done U/S interpreted by me (1pt. min.). @ -None done What testing was considered but not performed or refused? (CT, X-rays, U/S, labs)? Why? @ -None What meds were considered but not given or refused? Why? @ -None Did you discuss the management of the patient with other professionals (latonia madridonaltim i.e. , PA, STORAGE SOLUTIONS ARCHITECT, lab, RT, psych nurse, medical social worker, gear hobber, teacher, hydrographical technical officer, returned case inspector)? Give summary @ -Case discussed with Dr. Bentley, psychiatry. She advised IM Cogentin for symptom control and close outpatient follow-up tomorrow as scheduled to reevaluate Invega dosing. She also recommended discharging patient with p.o. Cogentin for possibility of return of symptoms. Was smoking cessation discussed for >3mins.? @ -No Was critical care preformed (if so, how long)? @ -No Were there social determinants of health that impacted care today? How? (Homelessness, low income, unemployed, alcoholism, drug addiction, transportation, low edu. Level, literacy, decrease access to med. care, penitentiary, rehab)? @ -No Was there de-escalation of care discussed even if they declined (Discuss DNR or withdrawal of care, Hospice)? DNR status @ -No What co-morbidities impacted this encounter? (DM, HTN, Smoking, COPD, CAD, Cancer, CVA, ARF, Chemo, Hep., AIDS, mental health diagnosis, sleep apnea, morbid obesity)? @ -Mental health Was patient admitted / discharged? Hospital course, mention meds given and route, prescriptions, significant lab abnormalities, going to OR and other pertinent info. @ -Discharge. 28-year male presented the ER for evaluation of dysphagia and drooling. Upon arrival patient tachycardic at 122 bpm. Vitals otherwise stable. Patient is ANO x 3 with no acute neurological findings on exam. Patient is drooling and is slow to respond verbally and to commands. Laboratory studies obtained unremarkable. Depakote level 52.1. EKG showing sinus tachycardia. Case was discussed with psychiatrist, Dr. Bentley, as symptoms believed to be stemming from Invega. She recommended IM Cogentin for symptom control. She reports patient has follow-up with prescriber tomorrow for further evaluation of Invega dosing. Upon reevaluation, patient resting comfortably on stretcher no signs of acute distress. Patient reporting mild improvement in drooling. Patient is agreeable and comfortable with discharge at this time. He will be discharged in stable condition instructed to follow-up closely with prescriber, [facility] and PCP. Patient discharged with p.o. Cogentin as instructed by Dr. Bentley for possibility of return of symptoms. Strict return parameters discussed. Patient discharged in stable condition. Patient and patient's girlfriend verbally expressed understanding agree with care plan. Case discussed with ED attending, Dr. Leiva. Undiagnosed new problem with uncertain prognosis? @ -No Drug Therapy requiring intensive monitoring for toxicity (Heparin, Nitro, Insulin, Cardizem)? @ -No Were any procedures done? @ -No Diagnosis/symptom? @ -Dysphagia/drooling Acute, or Chronic, or Acute on Chronic? @ -Acute Uncomplicated (without systemic symptoms) or Complicated (systemic symptoms)? @ -Complicated Side effects of treatment? @ -No Exacerbation, Progression, or Severe Exacerbation? @ -No Poses a threat to life or bodily function? How? (Chest pain, [place], [place], pneumonia, PE, COPD, DKA, ARF, appy, cholecystitis, CVA, Diverticulitis, Homicidal, Suicidal, threat to staff... and all critical care pts) @ -Low at this time - Lab Data Result diagrams: 08/12/24 12:10 08/12/24 12:10 Lab Results 08/12/24 08/12/24 Range/Units 12:10 12:10 WBC 9.07 (4.50-10.00) 10*3/uL RBC 5.37 (4.40-5.60) 10*6/uL Hgb 16.5 (13.0-17.0) g/dL Hct 47.7 (39.6-50.0) % MCV 88.8 (80.0-97.0) fL MCH 30.7 (27.0-32.0) pg MCHC 34.6 (32.0-37.0) g/dL Plt Count 207 (140-440) 10*3/uL MPV 11.0 (9.5-12.2) fL Immature Gran % (Auto) 0.2 % Neutrophils % 79.0 % Lymphocytes % 12.5 % Monocytes % 7.7 % Eosinophils % 0.2 % Basophils % 0.4 % Immature Gran # 0.02 (0.00-0.04) 10*3/uL Neutrophils # 7.16 (1.80-7.70) 10*3/uL Lymphocytes # 1.13 (0.90-5.00) 10*3/uL Monocytes # 0.70 (0.20-1.00) 10*3/uL Eosinophils # 0.02 L (0.04-0.35) 10*3/uL Basophils # 0.04 (0.00-0.10) 10*3/uL Sodium 137 (137-145) mmol/L Potassium 4.4 (3.5-5.1) mmol/L Chloride 102 (98-107) mmol/L Carbon Dioxide 24 (22-30) mmol/L Anion Gap 11 mmol/L BUN 12 (9-20) mg/dL Creatinine 0.82 (0.66-1.25) mg/dL Est GFR (CKD-EPI)AfAm >90 (>60 ml/min/1.73 sqM) Est GFR (CKD-EPI)NonAf >90 (>60 ml/min/1.73 sqM) Glucose 87 (74-99) mg/dL Calcium 10.2 (8.4-10.2) mg/dL Total Bilirubin 0.8 (0.2-1.3) mg/dL AST 23 (17-59) U/L ALT 40 (4-49) U/L Alkaline Phosphatase 50 (38-126) U/L Total Protein 7.2 (6.3-8.2) g/dL Albumin 4.6 (3.5-5.0) g/dL Valproic Acid 52.1 ug/mL Disposition Clinical Impression: Drooling, Dysphagia Disposition: HOME SELF-CARE Condition: Stable Instructions (If sedation given, give patient instructions): Paliperidone (By mouth) Additional Instructions: Follow-up closely with [facility]. you may take david chapa if symptoms return. Follow-up arash with psychiatry. Return to the ER for any new or worsening concerns. Is patient prescribed a controlled substance at d/c from ED?: No Referrals: Reginald Huffman DO [Primary Care Provider] - 1-2 days Forms: Outpatient Therapy List, Outpatient Counseling Time of Disposition: 12:58
[2024-08-12 12:20] LABS: Basophils # (A) 0.04 10*3/uL (0.00-0.10); Basophils % (A) 0.4 %; Eosinophils # (A) 0.02 10*3/uL (0.04-0.35); Eosinophils % (A) 0.2 %; HCT 47.7 % (39.6-50.0); HGB 16.5 g/dL (13.0-17.0); Lymphocytes # (A) 1.13 10*3/uL (0.90-5.00); Lymphocytes % (A) 12.5 %; MCH 30.7 pg (27.0-32.0); MCHC 34.6 g/dL (32.0-37.0); MCV 88.8 fL (80.0-97.0); Monocytes % (A) 7.7 %; Neutrophils # (A) 7.16 10*3/uL (1.80-7.70); Platelet Count 207 10*3/uL (140-440); RBC 5.37 10*6/uL (4.40-5.60); RDW 12.3 % (11.5-14.5); WBC 9.07 10*3/uL (4.50-10.00)
[2024-08-12 12:32] LABS: ALT 40 U/L (4-49); AST 23 U/L (17-59); African American GFR (CKD) >90 (>60 ml/min/1.73 sqM); Albumin 4.6 g/dL (3.5-5.0); Alkaline Phosphatase 50 U/L (38-126); Anion Gap 11 mmol/L; Blood Urea Nitrogen 12 mg/dL (9-20); Calcium 10.2 mg/dL (8.4-10.2); Carbon Dioxide 24 mmol/L (22-30); Chloride 102 mmol/L (98-107); Glucose 87 mg/dL (74-99); Non-African American GFR(CKD) >90 (>60 ml/min/1.73 sqM); Potassium 4.4 mmol/L (3.5-5.1); Sodium 137 mmol/L (137-145); Total Bilirubin 0.8 mg/dL (0.2-1.3); Total Protein 7.2 g/dL (6.3-8.2)
[2024-08-12] MEDS: BENZTROPINE 2 MG/2 ML AMP IM STA (12:33)
[2024-08-12 12:37] LABS: Valproic Acid (Depakene) 52.1 ug/mL
[2024-08-12] MEDS: BENZTROPINE MESYLATE 1 MG TAB PO STA (13:23)
[2024-08-12 13:26] VITALS: BP 120/89; PULSE 105; RESP 20; TEMP 97.8
== END 2024-08-12 13:36 | disposition home or self-care (01) ==
LOC: EC 11:20
DX: R13.10 Dysphagia, unspecified (principal); K11.7 Disturbances of salivary secretion; Z88.8 Allergy status to other drugs, medicaments and biological substances
CPT/HCPCS: 36415; 93005; 80164; 80053; 85025; 99285; 96372; J0515

== ENCOUNTER → 2024-09-16 | Outpatient (CLI) | payer OTHER ==
[2024-09-16 18:48] LABS: ALT 21 U/L (10-49); AST 20 U/L (14-35); Albumin 4.7 g/dL (3.8-4.9); Albumin/Globulin Ratio 1.96 Ratio (1.60-3.17); Alkaline Phosphatase 45 U/L (41-126); Anion Gap 10.20 mmol/L (4.00-12.00); BUN/Creat Ratio 14.40 Ratio (12.00-20.00); Blood Urea Nitrogen 14.4 mg/dL (9.0-27.0); Calcium 9.9 mg/dL (8.7-10.3); Carbon Dioxide 25.8 mmol/L (21.6-31.8); Chloride 104 mmol/L (96-109); Globulin 2.4 g/dL (1.6-3.3); Glucose 57 mg/dL (70-110); Potassium 4.5 mmol/L (3.5-5.5); Sodium 140 mmol/L (135-145); Total Protein 7.1 g/dL (6.2-8.2)
== END | disposition home or self-care (01) ==
LOC: LABWHC1 14:24
PROVIDERS: ATTEND Psychiatry & Neurology Psychiatry
DX: F31.2 Bipolar disorder, current episode manic severe with psychotic features (principal)
CPT/HCPCS: 36415; 80053; 80164